=== PATIENT | female | born 1980 | race Caucasian/White ===

== ENCOUNTER 2020-05-09 10:33 | Emergency (ER) | payer MEDICAID, SELFPAY ==
[~2020-05-09] VITALS: Ht 157.5 cm; Wt 82.1 kg
[2020-05-09 10:35] VITALS: BP 130/83; Ht 157.5 cm; Wt 82.1 kg
== END 2020-05-09 11:20 | disposition home or self-care (01) ==
LOC: ED 10:33
DX: U07.1 COVID-19 (principal); J45.909 Unspecified asthma, uncomplicated; Z98.890 Other specified postprocedural states

== ENCOUNTER 2020-07-24 15:42 | Emergency (ER) | payer MEDICAID ==
[~2020-07-24] VITALS: Ht 157.5 cm; Wt 83.5 kg
[2020-07-24 15:51] VITALS: BP 129/90; Ht 157.5 cm; Wt 83.5 kg
== END 2020-07-24 18:19 | disposition home or self-care (01) ==
LOC: ED 15:42
DX: M26.621 Arthralgia of right temporomandibular joint (principal); R11.0 Nausea; J45.909 Unspecified asthma, uncomplicated; Z98.890 Other specified postprocedural states
CPT/HCPCS: J1885; Q0162